=== PATIENT | female | born 1950 | race Caucasian/White ===

== ENCOUNTER 2021-10-08 08:18 | Outpatient (CLI) | payer BC | END 2021-10-08 08:19 | disposition home or self-care (01) | LOC: BICMAMMO 08:18 | PROVIDERS: ATTEND Obstetrics & Gynecology | DX: Z13.820 Encounter for screening for osteoporosis (principal); R92.8 Other abnormal and inconclusive findings on diagnostic imaging of breast; M81.0 Age-related osteoporosis without current pathological fracture; R92.0 Mammographic microcalcification found on diagnostic imaging of breast | CPT/HCPCS: 77066; 77080; G0279 ==

== ENCOUNTER → 2021-10-25 | Day surgery (SDC) | payer BC | END | disposition home or self-care (01) | LOC: MAMMO 07:12 | PROVIDERS: ATTEND Obstetrics & Gynecology | PROC: 0H9U3ZX Drainage of Left Breast, Percutaneous Approach, Diagnostic (ICD-10-PCS; principal; 2021-10-25) | DX: D24.2 Benign neoplasm of left breast (principal); Z88.1 Allergy status to other antibiotic agents | CPT/HCPCS: 19081; 76098; 88305 ==